=== PATIENT | female | born 1990 | race Caucasian/White ===

== ENCOUNTER 2017-04-24 09:29 | Emergency (ER) | payer OTHER ==
[2017-04-24 12:25] LABS: ADD MAN DIFF? NO
[2017-04-24 12:27] LABS: BASOPHIL # 0.1 10^3/ul (0.0-0.1); BASOPHILS % 0.9 % (0.0-2.0); EOSINOPHILS # 0.5 10^3/ul (0.0-0.5); EOSINOPHILS % 8.1 % (0.0-7.0); HEMATOCRIT 36.6 % (37.0-47.0); LYMPHOCYTES # 1.9 10^3/ul (0.8-2.9); LYMPHOCYTES % 29.4 % (15.0-51.0); MEAN CORPUSCULAR HEMOGLOBIN 27.5 pg (29.0-33.0); MEAN CORPUSCULAR HGB CONC 32.8 g/dl (32.0-37.0); MEAN CORPUSCULAR VOLUME 83.9 fl (82.0-101.0); MEAN PLATELET VOLUME 10.6 fl (7.4-10.4); MONOCYTE # 0.3 10^3/ul (0.3-0.9); MONOCYTES % 4.2 % (0.0-11.0); NEUTROPHIL # 3.6 10^3/ul (1.6-7.5); NEUTROPHILS % 57.1 % (39.0-77.0); PLATELET COUNT 276 10^3/UL (140-415); RED BLOOD COUNT 4.36 10^6/ul (4.20-5.40); RED CELL DISTRIBUTION WIDTH 13.2 % (11.5-14.5)
[2017-04-24 12:27] LABS: WHITE BLOOD COUNT 6.4 10^3/ul (4.8-10.8)
[2017-04-24 12:40] LABS: ADD UMIC YES; UR ASCORBIC ACID NEGATIVE (NEGATIVE); UR BACTERIA FEW /HPF (NONE SEEN); UR BILIRUBIN (Dip) NEGATIVE (NEGATIVE); UR BLOOD (Dip) 3+ mg/dL (NEGATIVE); UR BUDDING YEAST FEW /HPF (NONE SEEN); UR CLARITY SLIGHTLY CLOUDY (CLEAR); UR COLOR YELLOW (YELLOW); UR GLUCOSE (Dip) NEGATIVE (NEGATIVE); UR KETONES (Dip) NEGATIVE (NEGATIVE); UR LEUKOCYTE ESTERASE (Dip) NEGATIVE Leu/ul (NEGATIVE); UR NITRITE (Dip) NEGATIVE (NEGATIVE); UR RBC > 182 /HPF (0-5); UR SPECIFIC GRAVITY (Dip) 1.018 (1.003-1.030); UR SQUAMOUS EPITHELIAL CELL FEW /HPF (FEW); UR TOTAL PROTEIN (Dip) NEGATIVE (NEGATIVE); UR UROBILINOGEN (Dip) NEGATIVE (NEGATIVE); UR WBC 21 /HPF (0-5)
== END 2017-04-24 15:11 | disposition left against medical advice (07) ==
LOC: FTE 15:11
DX: O03.9 Complete or unspecified spontaneous abortion without complication (principal); R10.2 Pelvic and perineal pain
CPT/HCPCS: 36415; 76801; 76817; 81001; 84702; 85025; 86900; 86901; 99284-25

== ENCOUNTER 2017-09-06 19:57 | Emergency (ER) | payer OTHER | END 2017-09-06 20:51 | disposition home or self-care (01) | LOC: E/R 19:57 | DX: N64.4 Mastodynia (principal) | CPT/HCPCS: 99283; Z7502 ==

== ENCOUNTER 2018-07-18 13:47 | Emergency (ER) | payer OTHER ==
[2018-07-18] MEDS: METOCLOPRAMIDE 10 MG INJ IV (14:47)
[2018-07-18] MEDS: SOD CHLORIDE 0.9% 1,000 ML IV (14:47)
== END 2018-07-18 16:27 | disposition home or self-care (01) ==
LOC: FTE 13:47
DX: O21.0 Mild hyperemesis gravidarum (principal); Z3A.14 14 weeks gestation of pregnancy
CPT/HCPCS: 96361; 96374; 99284-25

== ENCOUNTER 2018-09-18 19:25 | Outpatient (CLI) | payer OTHER ==
[2018-09-18 21:05] LABS: ADD UMIC YES; UR ASCORBIC ACID NEGATIVE (NEGATIVE); UR BACTERIA FEW /HPF (NONE SEEN); UR BILIRUBIN (Dip) NEGATIVE (NEGATIVE); UR BLOOD (Dip) 1+ mg/dL (NEGATIVE); UR CLARITY CLOUDY (CLEAR); UR COLOR YELLOW (YELLOW); UR GLUCOSE (Dip) NEGATIVE (NEGATIVE); UR KETONES (Dip) NEGATIVE (NEGATIVE); UR LEUKOCYTE ESTERASE (Dip) 2+ Leu/ul (NEGATIVE); UR NITRITE (Dip) NEGATIVE (NEGATIVE); UR RBC 2 /HPF (0-5); UR SPECIFIC GRAVITY (Dip) 1.023 (1.003-1.030); UR SQUAMOUS EPITHELIAL CELL FEW /HPF (FEW); UR TOTAL PROTEIN (Dip) NEGATIVE (NEGATIVE); UR UROBILINOGEN (Dip) NEGATIVE (NEGATIVE); UR WBC 10 /HPF (0-5)
== END 2018-09-18 21:50 | disposition home or self-care (01) ==
LOC: OBT 19:25 → L-D 19:25 → OBT 21:50
DX: O26.892 Other specified pregnancy related conditions, second trimester (principal); Z3A.22 22 weeks gestation of pregnancy; R10.2 Pelvic and perineal pain
CPT/HCPCS: 76815; 76817; 81001; 87086